=== PATIENT | male | born 1975 | race Caucasian/White ===

== ENCOUNTER 2017-10-14 05:20 | Emergency (ER) | payer OTHER ==
[~2017-10-14] VITALS: Ht 180.3 cm; Wt 97.5 kg
[~2017-10-14 05:20] MED LIST: AMOCLA875 PO; Augmentin 875-1 EACH PO; CEPH500 PO; ERYT.5TO LEFTEYE; HALO.05TC TOP; HYDACE5 PO; HYDCHL25 PO; IBUP800 PO; NAPR500 PO; OXYACE5T PO; PARO20 PO; PRED10 PO; RXOXYACE PO; Ultram50 MG PO
[2017-10-14 05:56] LABS: BASOPHILS ABSOLUTE AUTO 0.06 K/mm3 (0.00-0.23); BASOPHILS PERCENT AUTO 1 % (0-2); EOSINOPHILS ABSOLUTE AUTO 0.11 K/mm3 (0.00-0.68); EOSINOPHILS PERCENT AUTO 2 % (0-6); Hematocrit 46.3 % (37.0-53.0); IMMATURE GRAN ABSOLUTE AUTO 0.01 K/mm3 (0.00-0.10); IMMATURE GRAN PERCENT AUTO 0 % (0-1); LYMPHOCYTES ABSOLUTE AUTO 2.82 K/mm3 (0.84-5.20); LYMPHOCYTES PERCENT AUTO 58 % (21-46); MONOCYTES ABSOLUTE AUTO 0.42 K/mm3 (0.16-1.47); MONOCYTES PERCENT AUTO 9 % (4-13); Mean Corpuscular HGB 32.8 pg (26.0-34.0); Mean Corpuscular HGB Conc 34.6 g/dL (31.5-36.5); Mean Corpuscular Volume 95 fL (80-100); Mean Platelet Volume 8.8 fL (9.1-12.4); NEUTROPHILS ABSOLUTE AUTO 1.47 K/mm3 (1.96-9.15); NEUTROPHILS PERCENT AUTO 30 % (41-73); Platelet Count 230 K/mm3 (150-400); RDW Coefficient Variation 11.8 % (11.7-14.2); Red Blood Cell Count 4.88 M/mm3 (4.30-5.90); White Blood Cell Count 4.89 K/mm3 (4.00-11.30)
[2017-10-14 06:24] LABS: Alanine Aminotransfer (ALT/SGP 48 U/L (12-78); Albumin, Blood 4.6 g/dL (3.4-5.0); Albumin/Globulin Ratio 1.1 (0.8-1.8); Alk Phos 65 U/L (50-136); Anion Gap 11 mmol/L (6-16); Aspartate Aminotrans (AST/SGOT 57 U/L (12-37); Bilirubin, Total 0.4 mg/dL (0.1-1.0); Blood Urea Nitrogen 8 mg/dL (8-24); Bun/Creatinine Ratio 9.4 (12.0-20.0); CO2, Blood 27 mmol/L (21-32); Chloride, Blood 103 mmol/L (98-108); Creatinine, Blood 0.86 mg/dL (0.60-1.20); Globulin, Blood 4.3 g/dL (2.2-4.0); Glomerular Filtration Rate >60 (60-); Glucose, Blood 105 mg/dL (70-99); Potassium, Blood 3.5 mmol/L (3.5-5.5); Sodium, Blood 141 mmol/L (136-145); Total Protein, Blood 8.9 g/dL (6.4-8.2)
== END 2017-10-14 08:12 | disposition home or self-care (01) ==
LOC: ER 05:20
PROVIDERS: Emergency Medicine
DX: R10.10 Upper abdominal pain, unspecified (principal); I10 Essential (primary) hypertension; Z91.013 Allergy to seafood
CPT/HCPCS: 36415; 80053; 83690; 85025; 96361; 96374; 99283; J2405; J7030

== ENCOUNTER → 2018-03-15 | Outpatient (CLI) | payer OTHER | END | disposition home or self-care (01) | LOC: OLS 14:35 → LAB SHORT 14:35 | DX: S51.811A Laceration without foreign body of right forearm, initial encounter (principal) | CPT/HCPCS: 87070; 87075; 87205 ==

== ENCOUNTER 2018-08-11 21:25 | Inpatient (IN) | payer OTHER ==
[~2018-08-11] VITALS: Ht 180.3 cm; Wt 91.1 kg
[2018-08-11] MEDS ORDERED: GABA300 PO (21:48)
[2018-08-11] MEDS ORDERED: CLON.1 PO (21:49)
[2018-08-11] MEDS ORDERED: THIA100 PO (21:49)
[2018-08-11] MEDS ORDERED: LORA1 PO (21:50)
[2018-08-11] MEDS ORDERED: MELA3 PO (21:50)
[2018-08-11] MEDS ORDERED: Hair, Skin & N1 EACH PO (21:50)
[2018-08-11] MEDS ORDERED: FOLI400 PO (21:50)
[2018-08-11] MEDS ORDERED: Prilosec Otc20 MG PO (21:52)
[2018-08-11] MEDS ORDERED: [UNRECOGNIZED DRUG - OTHER] PO (21:52)
[2018-08-11] MEDS ORDERED: METO25ER PO (21:53)
[2018-08-11] MEDS ORDERED: HYDHCL25 PO (21:53)
[2018-08-11] MEDS ORDERED: PROM25 PO (21:54)
[2018-08-11] MEDS ORDERED: TRAZ50 PO (21:55)
[2018-08-11 23:04] LABS: BASOPHILS ABSOLUTE AUTO 0.07 K/mm3 (0.00-0.23); BASOPHILS PERCENT AUTO 1 % (0-2); EOSINOPHILS ABSOLUTE AUTO 0.29 K/mm3 (0.00-0.68); EOSINOPHILS PERCENT AUTO 6 % (0-6); Hematocrit 40.7 % (37.0-53.0); Hemoglobin 13.6 g/dL (13.5-17.5); IMMATURE GRAN ABSOLUTE AUTO 0.02 K/mm3 (0.00-0.10); IMMATURE GRAN PERCENT AUTO 0 % (0-1); LYMPHOCYTES ABSOLUTE AUTO 1.39 K/mm3 (0.84-5.20); LYMPHOCYTES PERCENT AUTO 29 % (21-46); MONOCYTES ABSOLUTE AUTO 0.96 K/mm3 (0.16-1.47); MONOCYTES PERCENT AUTO 20 % (4-13); Mean Corpuscular HGB 33.4 pg (26.0-34.0); Mean Corpuscular HGB Conc 33.4 g/dL (31.5-36.5); Mean Corpuscular Volume 100 fL (80-100); Mean Platelet Volume 10.4 fL (9.1-12.4); NEUTROPHILS PERCENT AUTO 44 % (41-73); Platelet Count 216 K/mm3 (150-400); RDW Coefficient Variation 11.8 % (11.7-14.2); RDW Standard Deviation 42.7 fL (35.1-46.3); Red Blood Cell Count 4.07 M/mm3 (4.30-5.90); White Blood Cell Count 4.83 K/mm3 (4.00-11.30)
[2018-08-11 23:08] LABS: Alanine Aminotransfer (ALT/SGP 105 U/L (12-78); Albumin, Blood 3.8 g/dL (3.4-5.0); Alk Phos 56 U/L (50-136); Anion Gap 8 mmol/L (6-16); Aspartate Aminotrans (AST/SGOT 107 U/L (12-37); Bilirubin, Total 0.5 mg/dL (0.1-1.0); Blood Urea Nitrogen 7 mg/dL (8-24); Bun/Creatinine Ratio 9.4 (12.0-20.0); CO2, Blood 27 mmol/L (21-32); Calcium, Blood 9.1 mg/dL (8.5-10.1); Chloride, Blood 105 mmol/L (98-108); Creatinine, Blood 0.75 mg/dL (0.60-1.20); Globulin, Blood 3.8 g/dL (2.2-4.0); Glomerular Filtration Rate >60 (60-); Glucose, Blood 95 mg/dL (70-99); Sodium, Blood 140 mmol/L (136-145); Total Protein, Blood 7.6 g/dL (6.4-8.2)
[2018-08-11 23:10] LABS: Ethanol (Alcohol), Blood, Med <3 mg/dL
[2018-08-12 01:54] LABS: Hematocrit 40.1 % (37.0-53.0); Hemoglobin 13.5 g/dL (13.5-17.5); Mean Corpuscular HGB 34.1 pg (26.0-34.0); Mean Corpuscular HGB Conc 33.7 g/dL (31.5-36.5); Mean Corpuscular Volume 101 fL (80-100); Mean Platelet Volume 10.2 fL (9.1-12.4); Platelet Count 194 K/mm3 (150-400); RDW Coefficient Variation 11.8 % (11.7-14.2); RDW Standard Deviation 43.9 fL (35.1-46.3); Red Blood Cell Count 3.96 M/mm3 (4.30-5.90); White Blood Cell Count 3.77 K/mm3 (4.00-11.30)
[2018-08-12 02:13] LABS: Alanine Aminotransfer (ALT/SGP 96 U/L (12-78); Albumin, Blood 3.7 g/dL (3.4-5.0); Albumin/Globulin Ratio 1.1 (0.8-1.8); Alk Phos 55 U/L (50-136); Anion Gap 7 mmol/L (6-16); Aspartate Aminotrans (AST/SGOT 90 U/L (12-37); Bilirubin, Total 0.5 mg/dL (0.1-1.0); Blood Urea Nitrogen 6 mg/dL (8-24); Bun/Creatinine Ratio 7.8 (12.0-20.0); CO2, Blood 29 mmol/L (21-32); Calcium, Blood 8.8 mg/dL (8.5-10.1); Chloride, Blood 106 mmol/L (98-108); Creatinine, Blood 0.77 mg/dL (0.60-1.20); Globulin, Blood 3.5 g/dL (2.2-4.0); Glomerular Filtration Rate >60 (60-); Glucose, Blood 102 mg/dL (70-99); Potassium, Blood 3.7 mmol/L (3.5-5.5); Sodium, Blood 142 mmol/L (136-145); Total Protein, Blood 7.2 g/dL (6.4-8.2)
[2018-08-12 02:17] LABS: Lithium <0.20 mmol/L (0.60-1.20)
[2018-08-12 02:23] LABS: U Amphetamine Screen Not Detected; U Barbituate Screen Not Detected; U Benzodiazapine Screen DETECTED; U Buprenorphine Screen Not Detected; U Cannabinoids Screen Not Detected; U Cocaine Screen Not Detected; U Methadone Screen Not Detected; U Methamphetamine Screen Not Detected; U Opiates Screen Not Detected; U Oxycodone Screen Not Detected; U Phencyclidine Screen Not Detected; U Propoxyphene Screen Not Detected
--- NOTE | 2018-08-12 07:34 | NUR ---
Assumed Care: Assumed care of pt at approx 0300 when pt arrived to ICU from PCU, accompanied by INVESTIGATOR. Pt combative and required more than 4 clinical staff and 2 security staff to transfer pt over to ICU bed and place in violent restraints. Dr. Olea notified of need for yeaa-mh-diad w/pt and that pt was placed in tough cuff restraints x4 extremities. Pt started on precedex gtt and within 20 minutes, pt became much more calm and quiet. Dr. Olea at bedside for [id number]. Pt removed violent restraint and now non-violent restraint in place. Pt now calm and quiet. Precedex gtt titrated down to 0.7mc/kg/hr. Verified at bedside w/laz RN. Pt currently resting in bed with call light within reach. In no apparent sign of distress. VSS.
--- NOTE | 2018-08-12 07:35 | NUR ---
PT ARRIVED TO ICU WITH SECURITY & SEVERAL STAFF MEMBERS. PT WAS ORIENTED TO SELF ONLY & COMBATIVE, SWEARING & SPITTING. MULTIPLE STAFF, INCLUDING SECURITY STAFF REQUIRED TO PLACE PT IN 4PT TAT RESTRAINTS. PRECEDEX GTT WAS STARTED & PT WAS OBSERVED DIRECTLY FOR FIRST HOUR WHILE TITRATING. TATX4 WERE RELEASED AFTER ONE HOUR & PT CHANGED TO NON-VIOLENT RESTRAINT AT 0530. FACE TO FACE ASSESSMENT BY MYSELF & DR IRBY. PRECEDEX GTT IS TITRATED TO 0.7MCG/KG/HR. PT IS CHANGED TO NON-VIOLENT RESTRAINT.
--- NOTE | 2018-08-12 09:19 | NUR ---
PCU PATIENT UPDATE PT ARRIVED TO PCU AT APPROX 0100 AND WAS TRANSFERRED TO ICU AT APPROX 0300. PT EXHIBITED INCREASING AGITATION AND ANXIETY. HIS CIWA WENT FROM 13 ON ARRIVAL TO A 35 BY TIME HE WAS TRANSFERRED TO ICU. HE WAS IMPULSIVE, NOT REDIRECTABLE, AND WAS GROWING INCREASINGLY COMBATIVE WITH STAFF. HE WAS PROVIDED ORDERED ANTI ANXIETY MEDS TO NO AFFECT. DOCTOR WAS CALLED AND PT WAS TRANSFERRED WITH ORDERS TO BEGIN PRECEDEX ON ARRIVAL TO ICU. REPORT GIVEN TO EMILY DOMINIQUE AT BEDSIDE.
--- NOTE | 2018-08-12 10:07 | NUR ---
0800 PT HAS LEAKED URINE AND REMAINS SEDATE. JOSÉ PLACED WITH 1525 U.O. AND WILL LEAVE JOSÉ IN FOR NOW. PT TOLERATED W/O DISTRESS.
--- NOTE | 2018-08-12 12:38 | NUR ---
PT CONTINUES TO REST QUIETLY EVEN WITH DOWNWARD TITRATION OF PRECEDEX, SEE FLOW SHEET. VSS AND RR REGULAR WITH NOTED SATS. WHILE TYPING THIS ENTRY, PT RAISED UP IN BED, MUMBLED AND BECAME RESTLESS. PRECEDEX GTT LEFT AT 0.4MCG FOR NOW. PT MOVING ALL 4 EXT.
[2018-08-12 15:12] LABS: Source, Urine Catheter
[2018-08-12 15:22] LABS: Appearance, Urine Clear (Clear); Bilirubin, Urine Neg (Neg); Blood, Urine Neg (Neg); Color, Urine Yellow (P-Yellow); Glucose Qualitative, Urine Neg (Neg); Ketones, Urine Neg (Neg); Leukocyte Esterase, Urine Neg (Neg); Nitrite, Urine Neg (Neg); Protein, Urine Neg (Neg); Specific Gravity, Urine 1.015 (1.003-1.022); Urobilinogen, Urine NORM (Normal); pH, Urine 6.5 (5.0-8.0)
--- NOTE | 2018-08-12 15:24 | NUR ---
PT CONT TO REST WELL BUT JUST NOW AGAIN BRIEFLY RAISED UP AND DOWN WITH OUT INCIDENT. VS NOTED. PRECEDEX GTT AT 0.6/14.7ML. PT REMAINS RESTRAINED.
--- NOTE | 2018-08-12 16:27 | NUR ---
PT AROUSING AND WANTS"OUT" BUT THEN CLOSED EYES AND CALM AGAIN. PRECEDEX REMAINS AT 0.6MCG FOR NOW. WILL CONT TO FOLLOW.
--- NOTE | 2018-08-12 18:00 | NUR ---
PT OCC AWAKENS BUT ONLY FOR SHORT PERIOD OF MUMBLING, THE TO SLEEP. PRECEDEX GTT AT 0.7MCG. RESTRAINTS TIMES 4 THIS DAY. VSS NOTED.
--- NOTE | 2018-08-12 19:55 | NUR ---
ASSUMED CARE OF PT AT 1900. REPORT RECEIVED AT BEDSIDE. PT PRESENTS IN BED WITH NOTEABLE 'TWITCHING' MOTIONS. PT AWAKENS AND BECOMES VULGAR WITH CARE. WHEN PRESENTING PT WITH LIBRIUM TO HELP WITH WITHDRAWALS PT IS COOPERATIVE WITH TAKING MEDS. PT SLOW WITH SWALLOW BUT IS ABLE TO MANAGE TAKING MEDS WITHOUT COUGH OR ISSUE. DID ADMINISTER 2 MG ATIVAN WELL. VSS. PRECEDEX CONTINUES AT 0.7 MCG'S/KG/HOUR. WILL CONTINUE TO CLOSELY MONITOR PT. HE ALSO REMAINS IN RESTRAINTS X 4 (EXTREMITIES) PT HAS, SINCE TAKING OVER CARE, BEEN PULLING AGGRESSIVELY AT RESTRAINTS AND ATTEMPTING TO GET OUT OF BED. AT THIS TIME, PT IS RESTING WITHOUT PULLING AT RESTRAINTS OR ATTEMPTING TO GET OUT OF BED. WILL REVIEW CHART AND PLAN OF CARE FOR THIS PT.
--- NOTE | 2018-08-12 21:21 | NUR ---
PT REMAINS IN 4 POINT RESTRAINTS FOR HIS SAFETY. HAS DEMONSTRATED ANXIOUSNESS AND IMPULSIVENSS. AT THIS TIME, PT RESTING IN NO APPARENT DISTRESS. HAS HAD DOSAGE OF LIBRIUM WITH GOOD RESULTS. WILL CONTINUE TO CLOSELY MONITOR.
[2018-08-13 03:29] LABS: Hematocrit 43.3 % (37.0-53.0); Mean Corpuscular HGB 34.1 pg (26.0-34.0); Mean Corpuscular HGB Conc 34.6 g/dL (31.5-36.5); Mean Platelet Volume 9.4 fL (9.1-12.4); Platelet Count 185 K/mm3 (150-400); RDW Coefficient Variation 11.3 % (11.7-14.2); RDW Standard Deviation 41.2 fL (35.1-46.3); White Blood Cell Count 6.41 K/mm3 (4.00-11.30)
[2018-08-13 03:30] LABS: Mean Corpuscular Volume 98 fL (80-100)
[2018-08-13 03:46] LABS: Anion Gap 8 mmol/L (6-16); Blood Urea Nitrogen 4 mg/dL (8-24); Bun/Creatinine Ratio 5.9 (12.0-20.0); CO2, Blood 29 mmol/L (21-32); Calcium, Blood 8.5 mg/dL (8.5-10.1); Chloride, Blood 104 mmol/L (98-108); Creatinine, Blood 0.67 mg/dL (0.60-1.20); Glomerular Filtration Rate >60 (60-); Glucose, Blood 106 mg/dL (70-99); Phosphorus, Blood 1.9 mg/dL (2.5-4.9); Potassium, Blood 3.8 mmol/L (3.5-5.5); Sodium, Blood 141 mmol/L (136-145)
--- NOTE | 2018-08-13 07:15 | NUR ---
NURSING SUMMARY RECEIVED REPORT FROM JUANY BROWN, AND ASSUMED CARE OF PATIENT. PATIENT IN TOUGH CUFFS X 4 EXTREMITIES, SLEEPING AT THIS TIME, AWAKES TO VOICE AND GENTLE TOUCH, MUMBLES WITH INTERMITTEN UNDERSTANDABLE ONE WORD RESPONSES TO QUESTIONS AND SOME CUS WORDS. WHEN HE WAKES, HE BECOMES MODERATELY AGITATED, ATTEMPTS TO GET OUT OF BED, PULLING ON THE RESTRAINTS SO HARD THE BED SHAKES STRONGLY, IMPULSIVE AND MOVES FAST, MOVES ALL EXTREMETIES AND REPOSITIONS SELF WITH ATTEMPTS TO GET OUT OF BED. FREQUENT ASSESSMENTS TO CONSIDER USING SOFT RESTRAINTS INSTEAD OF TUFF CUFFS. ON PRECEDEX AT 0.7 MCG/KG/HR. KPHOS INFUSING FOR PHOS = 1.9. CIWA - 16. WILL MEDICATE WITH ATIVAN AND LIBRIUM ORDERED. JOSÉ IN PLACE DRAINING CLEAR YELLOW URINE. NO EVIDENCE OF PAIN OR DISTRESS OTHER THAN THE EVIDENT WITHDRAWAL SYMPTOMS.
--- NOTE | 2018-08-13 07:30 | NUR ---
HAVE ADMINISTERED 50 MG LIBRIUM SEVERAL TIMES THIS NIGHT. NEEDS COACHING ON TAKING WATER. NO COUGH OR ISSUES WITH SWALLOW. PT HAS BEEN VULGAR WITH STAFF, AND AT TIMES NOT COOPERATIVE. PRECEDEX REMAINS AT 0.7MCG/KG/HOUR. 2MG LORAZEPAM AT APPROX 1-2 HOURS FOR BREAKTHROUGH AGITATION. REPORT GIVEN TO ONCOMING RN.
--- NOTE | 2018-08-13 09:57 | NUR ---
NURSING SUMMARY INTERMITTENT SLEEPING WITH WAKING ON HIS OWN. WHEN AWAKE, ATTEMPTS TO GET OUT OF BED, PULLS VERY HARD ON THE RESTRAINTS WITH CLEAR ATTEMPTS TO GET OUT OF THEM, SHAKES THE BED HARD WITH EACH ATTEMPT, REMAINS IN TOUGH CUFFS, STRENGTH AND FREQUENCY OF ATTEMPTS TO GET OUT OF RESTRAINTS PREVENTS CHANGING TO SOFT RESTRAINTS FOR PATIENTS SAFETY AND THE SAFETY OF STAFF. WILL MONITOR FREQUENTLY FOR CONSIDERATION FOR SOFT RESTRAINTS. PRECEDEX CONTINUES AT 0.7 MCG/KG/HR. HAVE GIVEN TWO DOSES OF ATIVAN 2 MG IV AND ONE DOSE OF LIBRIUM 50 MG SINCE START OF SHIFT. PATIENT ABLE TO SWALLOW PILLS AND WATER WELL. ATTEMPTED TO FEED PATIENT BREAKFAST BUT WAS TOO SLEEPY AND SAID NO.
--- NOTE | 2018-08-13 12:08 | NUR ---
PATIENT STATES "I'M STARVING" WHEN ASKED IF HE IS HUNGRY. FEEDING PATIENT, ABLE TO CHEW HIS FOOD BUT TAKES A LONG TIME TO CHEW EACH BITE, APPROX. 2 MINUTES, ABLE TO SWALLOW WITHOUT CHOKING OR DIFFICULTY.
--- NOTE | 2018-08-13 15:00 | NUR ---
NURSING SUMMARY CURRENTLY IN TOUGH CUFFS TO BILATERAL WRISTS, REMOVED BILATERAL ANKLE TOUGH CUFFS FOLLOWING REMOVAL OF LEFT ANKLE FIRST FOR TWO HOURS AND THEN REMOVED THE RIGHT ANKLE, CONTINUES WITH SLEEPING AND INTERMITTENT WAKEFULNESS WITH ANXIETY AND AGITATION, ATTEMPTS TO PULL HARD ON WRIST RESTRAINTS THAT CAUSES THE BED THE SHAKE, ANSWERING QUESTIONS MORE COHERENTLY WITH FULL SENTENCE RESEPONSES, CIWA = 15, PRECEDEX AT 0.7 MCG/KG/HR, ATIVAN 2 MG APPROX. EVERY 2 HOURS AND LIBRIUM EVERY 6 HOURS. DENIES NEED TO HAVE A BOWEL MOVEMENT. DOES C/O NEEDING TO PEE, INSTRUCTED RE: CATHETER IN PLACE. DENIES URINARY BURNING AND DENIES PAIN. DOES ASK, "WHAT'S IT GOING TO TAKE TO GET OUT OF THESE?" INSTRUCTED RE: WHAT IS NECESSARY TO REMOVE THE RESTRAINTS. PT TENDS TO FALL ASLEEP DURING EXPLANATION.
--- NOTE | 2018-08-13 17:02 | NUR ---
NURSING SUMMARY SLEEPING MOST OF THE TIME. WAKES INTERMITTENTLY FOR BRIEF PERIODS OF TIME, WHEN WAKES HE TRIES TO SIT UP, AGITATED, TREMORS, PULLS HARD ON WRIST RESTRAINTS, SHAKES THE BED AT TIMES, NO ANKLE RESTRAINTS, SHAKES THE BED AT TIMES, MUMBLES, CUSSES, ORIENTED TO SELF ONLY, OFFERRING SIPS OF WATER, OFFERRED JUICE AND PT DENIED, REDUCED PRECEDEX TO 0.5 MCG/KG/HR, GIVING ATIVAN APPROX EVERY 2-3 HRS, NEXT LIBRIUM DOSE SCHEDULED FOR 1800, DENIES NEED TO HAVE A BOWEL MOVEMENT, JOSÉ IN PLACE DRAINING DARK YELLOW URINE, SR ON MONITOR, HR 60'S, LUNGS CLEAR, 1L O2 NC, SATS 97%.
--- NOTE | 2018-08-13 21:00 | NUR ---
ASSUMED CARE OF PT AT 1900. REPORT RECEIVED. PT PRESENTS IN BED. VERY RESTLESS. OF NOTE: PT COMPLAINS OF HIS LEFT WRIST BEING VERY SORE. HAS HAD SINCE ADMIT BEEN VERY AGGRESSIVE AT PULLING AT RESTRAINTS AND NEEDED MULTIPLE STAFF AND SECURITY JUST TO TRANSFER PT FROM PCU BED TO ICU BED. PT CONTINUES ON PRECEDEX DRIP AT 0.5 MCG'S. PRN ATIVAN GIVEN. TAT WRIST RESTRAINTS WERE REPLACED BY SOFT WRIST RESTRAINTS TO CHANGE PRESSURE ON WRIST. WILL CONTINUE TO MONITOR WRIST. WILL CALL FOR XRAY IF PAIN PERSISTS. WILL REVIEW CHART AND PLAN OF CARE.
--- NOTE | 2018-08-13 22:23 | NUR ---
PT CONTINUES ON PRECEDEX DRIP AT 0.5 MCG'S. HAVE NEEDED TO INCREASE FREQUENCY OF ATIVAN SECONDARY TO INCREASING CONFUSION AND AGITATION. NO INCREASE IN COMPLAINT OF LEFT WRIST ISSUES. PT HAS MADE SEVERAL ATTEMPTS AT MOVING DOWNWARDS IN BED TO GET OUT OF BED. WHEN ASKED IF HE KNEW WHERE HE IS HE ANSWERED, " HOME" PT REMAINS CONFUSED. HAS BEEN ATTEMPTING TO PULL AT JOSÉ CATHETER. WILL CONTINUE TO MONITOR.
--- NOTE | 2018-08-14 02:34 | NUR ---
PT AWAKENS FREQUENTLY AND SHIFT ABOUT IN BED. PULLS ON RESTRAINTS. REMAINS UNAWARE OF WHERE HE IS AT THE TIME. WILL CONTINUE TO MONITOR
[2018-08-14 03:54] LABS: Anion Gap 10 mmol/L (6-16); Blood Urea Nitrogen 5 mg/dL (8-24); Bun/Creatinine Ratio 7.9 (12.0-20.0); CO2, Blood 24 mmol/L (21-32); Calcium, Blood 8.3 mg/dL (8.5-10.1); Chloride, Blood 101 mmol/L (98-108); Creatinine, Blood 0.63 mg/dL (0.60-1.20); Glomerular Filtration Rate >60 (60-); Glucose, Blood 97 mg/dL (70-99); Magnesium, Blood 1.8 mg/dL (1.6-2.4); Phosphorus, Blood 2.2 mg/dL (2.5-4.9); Potassium, Blood 3.7 mmol/L (3.5-5.5); Sodium, Blood 135 mmol/L (136-145)
--- NOTE | 2018-08-14 04:52 | NUR ---
PRECEDEX INCREASED TO 6 MCG/KG/HOUR SECONDARY TO INCREASING CIWA. PT HAS AWAKENED AND WAS ABLE TO GET AHOLD OF HIS CATHETER. PT NEEDED TO BE INSTRUCTED THAT IF HE PULLED HIS CATHETER HE WOULD HURT HIMSELF. HE ONLY TOLD RN TO LEAVE HIM ALONE, PT NEEDED TO BE PHYSICALLY MADE TO RELEASE THE JOSÉ. RESTRAINTS READJUSTED TO WHERE HE WAS UNABLE TO GET HIS HANDS ON TUBING. WILL CONTINUE TO MONITOR PT, AND WILL REPORT OFF TO ONCOMING RN.
--- NOTE | 2018-08-14 10:28 | NUR ---
0715-ASSSUMED CARE OF PT. PATIENT IS ORIENTED TO PERSON, TIME. PT STATED HE IS IN [place]. PT NOTED TO HAVE SOME HALLUCINATIONS. PT IS ON PRECEDEX DRIP @ 0.6MCG/KG/HR. PT IS FOLLOWING COMMNADS. 0830-PT STARTED CLIMBING OUT OF BED. INCREASED PRECEDEX DRIP TO 1.0MCG/KG/HR 0900-AWAKENED PT FOR BREAKFAST, PT REFUSED TO EAT HE ONLY HAD A FEW SIPS OF HIS ORANGE JUICE. 1025-CURRENT PRECEDEX DRIP RATE @ 0.9MCG/KG/HR. PT IS SLEEPING SOUNDLY AWAKENS TO VOICE.
--- NOTE | 2018-08-14 15:07 | NUR ---
PT HAS BEEN SLEEPING MOST OF THE DAY. OPENS EYES TO VOICE. AWAKENS WHEN GIVEN FLUIDS. PT REFUSING TO EAT LUNCH AND DINNER. STILL ON PRECEDEX DRIP 2 0.9MCG/KG/HR.
--- NOTE | 2018-08-14 16:30 | NUR ---
1545-NOTED PT ATTEMPTING TO GET OUT OF BED WITHOUT HELP. ENCOURAGED PT TO GET BACK TO BED SINCE HE IS UNSTEADY ON HIS FEET AND IT WAS NOT SAFE FOR HIM TO GET OUT OF BED. PT STILL INSISTENT OF GETTING OUT OF BED WITHOUT HELP. PT IS HAVING TREMORS AND STARTING TO BE AGITATED. PT STARTS TO KICK & SWING HIS ARMS TO STAFF SINCE HE WANTS TO GET OUT OF BED. PT IS CONFUSED. PT HAS BEEN MOSTLY SLEEPING DURING THE DAY BUT WHEN AWAKENS PT GETS AGITATED. PT STARTED BE UNCONTROLLABLE DESPITE TALKING TO PATIENT. SECURITY WAS CALLED TO HELP DEESCALATE PATIENT. PT WAS GIVEN ATIVAN AND LIBRUIM. INCREASED PRECEDEX DRIP TO 1.2 MCG/KG/HR. PT IS BACK ON RESTRAINTS AT 1600.
--- NOTE | 2018-08-14 18:21 | NUR ---
SHIFT SUMMARY: PT IS SLEEPING, SEDATED WITH ATIVAN, LIBRIUM AND PRECEDEX. CURRENT PRECEDEX DRIP RATE IS AT 1.0MCG/KG/HR. PT HAS BEEN OFF RESTRAINTS SINCE AROUND 0800 THIS MORNING UNTIL AROUND 1600 THAT RESTRAINTS WAS PLACED BACK. PT WAS IMPULSIVE, CONFUSED, AGITATED, TRYING TO GET OUT OF BED WITHOUT HELP. PT IS STILL HAVING HALLUCINATIONS. CIWA WAS 13- 16- 23. CURRENT CIWA IS 11. STILL ON PRECEDEX DRIP @ 1.0 MCG/KG/HR.
--- NOTE | 2018-08-14 19:15 | NUR ---
ASSUMED CARE OF PT, REPORT RECEIVED. PT RESTING QUIETLY AT THIS TIME AND APPEARS TO BE SLEEPING. PRECEDEX GTT AT 1 MCG/KG/HR, NS AT 75 ML/HR BOTH TO LEFT FOREARM IV, RIGHT FOREARM SALINE LOCK NOTED, SITE WNL. BILAT SOFT WRIST RESTRAINTS NOTED. HR 70S, SINUS RHYTHM, SBP NOTED 163, WILL MONITOR. PT AROUSES EASILY TO VERBAL STIMULI, DOES NOT ANSWER QUESTIONS REGARDING ORIENTATION, RESPONSES ARE GENERALLY MUMBLED HOWEVER PT DID CLEARLY STATE "THIS IS BULLSHIT" WHILE ATTEMPTING TO GET UP OOB WITH WRIST RESTRAINTS IN PLACE. HE DOES NOT ANSWER REGARDING HIS PLANNED DESTINATION FOR UP OOB HOWEVER CONTINUES TO ATTEMPT TO GET UP AT THIS TIME. DOES CALM WITH DECREASE IN STIMULATION, WILL MONITOR.
--- NOTE | 2018-08-15 06:47 | NUR ---
PT CONT CONFUSED THROUGHOUT SHIFT, SPEECH IS MORE EASILY UNDERSTOOD AT 0400 ASSESSMENT, HE IS NOTED TO SAY "I'M SORRY" AT THAT TIME HOWEVER HE CONTINUES TO ATTEMPT TO GET UP OOB AND REACH FOR IV LINES AND CATHETER TUBING WITH INCREASES IN STIMULATION IN ROOM. ADMITS TO HEADACHE AT 0500 THIS AM, DENIES NAUSEA THROUGHOUT SHIFT. ASSESSMENT IS OTHERWISE UNCHANGED FROM HS.
--- NOTE | 2018-08-15 09:50 | NUR ---
0710-ASSUMED CARE OF PT. PT IS ASLEEP. STILL ON PRECEDEX DRIP @ 1.0MCG/KG/HR. DENIES PAIN ALTHOUGH WHEN LEFT HAND IS HELD PT COMPLAINTS ABOUT IT. OTHERWISE HE DENIES IT. PT OPENS EYES TO VOICE. PT KNOWS HIS NAME. SOMETIMES FOLLOWING DIRECTIONS. PT STATES HE WANTED TO GO HOME. REMINDED HIM THAT HE WENT TO [place] TO BE HELPED TO STOP DRINKING. PT SEEMED TO REMEMBER THIS. REMINDED HIM WHY HE WAS BROUGHT TO THE HOSPITAL. 0740-PT SAT UP IN BED. PT ATTEMPTED TO BRUSH HIS TEETH BUT VERY WEAK TO BE ABLE TO DO THE ACTIVITY. THIS NURSE ASSISTED PT IN BRUSHING HIS TEETH. PT THOUGHT HE WANTED TO GET OUT OF BED. RESTRAINTS WERE DISCONTINUED AT 0743. PT HAS BEEN CALM AND COOPERATIVE. PT HAS BEEN REDIRECTABLE. BED ALARM AND TAB ALARM ON AT THIS TIME. 0815-TRIED TO GET PATIENT OUT OF BED, PT REFUSED TO. PT IS STILL DROWSY BUT AROUSABLE. ASKED PT IF HE WANTS TO STAY IN BED OR GO SIT ON THE CHAIR PT STATED "STAY IN BED." MEAL ASSISTANCE WAS GIVEN TO PT. PT IS ABLE TO RAISE BOTH ARMS UP, SOMEWHAT LIMITED ON THE LEFT HAND. PT DID TRY TO PUT THE SPOON IN HIS MOUTH BUT UNSUCCESFUL. DECREASED PRECEDEX RATE TO 0.8MCG/KG/HR 0950-CURRENT PRECEDEX DRIP RATE IS @ 0.7MCG/KG/HR. STILL SLEEPING SOUNDLY. GETS AWAKEN EASILY TO IV BEEPS IN THE ROOM.
--- NOTE | 2018-08-15 11:27 | NUR ---
PT TRIED TO GET OUT OF BED AGAIN. ALLOWED PT TO SIT AT THE SIDE OF THE BED. HE WANTED TO SIT ON THE CHAIR. PT ATTEMPTED TO STAND WI 2 PERSON ASSIST BUT PT IS TOO WEAK. PT STATED "I CAN'T." PT DECIDED TO LAY BACK IN BED. PT WEAK TO BE ABLE TO SIT AT THE SIDE OF THE BED WITHOUT SUPERVISION.
--- NOTE | 2018-08-15 17:45 | NUR ---
SHIFT SUMMARY: PT IS STILL ON PRECEDEX DRIP CURRENTLY INFUSING AT 0.4MCG/KG/HR. CURRENT CIWA SCORE IS 12. PT HAS MOSTLY BEEN SLEEPING, AWAKENS TO GIVE PT FLUIDS BUT REFUSING TO EAT. PT RANDOMLY SAY FOUL LANGUAGE. PT IS STILL CONFUSED. PT HAS NOT IMPULSIVE ATTEMPTED TO GET OUT OF BED TODAY. PT HAS BEEN OFF RESTRAINTS SINCE 0743 THIS MORNING.
--- NOTE | 2018-08-15 19:30 | NUR ---
ASSUMED CARE OF PT, REPORT RECIEVED. PRECEDEX GTT AT 0.4 MCG/KG/HR TO LEFT FOREARM 16 GAUGE IV. PT DOES OPEN EYES TO VERBAL STIMULI VERY BRIEFLY, DOES NOT FOLLOW COMMANDS AT THIS TIME, VERBAL REPLIES ARE MUMBLED AND DIFFICULT TO UNDERSTAND, PT NODS HEAD YES WHEN ASKED IF HE IS ATTEMPTING TO STATE THAT HE HAS A HEADACHE. PT IS NOTED WARM TO TOUCH, TEMP 101.8, BLANKETS REMOVED AND TEMP DECREASED IN ROOM WILL MONITOR. LUNGS CLEAR THROUGHOUT, LEFT LOWER LOBE DIM, SATS HIGH 90S ON ROOM AIR, RESP RATE CONTINUES MID TO UPPER 20S, NO INCREASED WORK OF BREATHING IS NOTED. HRR, SINUS ON MONITOR, BP IMPROVED. ACTIVE BOWEL TONES X 4, ABD SOFT, NO GRIMACING NOTED WITH PALPATION. JOSÉ CATH REMAINS IN PLACE DRAINING CLEAR DARK YELLOW URINE TO GRAVITY.
[2018-08-16 03:29] LABS: BASOPHILS ABSOLUTE AUTO 0.04 K/mm3 (0.00-0.23); BASOPHILS PERCENT AUTO 0 % (0-2); EOSINOPHILS ABSOLUTE AUTO 0.01 K/mm3 (0.00-0.68); EOSINOPHILS PERCENT AUTO 0 % (0-6); Hematocrit 35.1 % (37.0-53.0); Hemoglobin 12.7 g/dL (13.5-17.5); IMMATURE GRAN ABSOLUTE AUTO 0.06 K/mm3 (0.00-0.10); IMMATURE GRAN PERCENT AUTO 1 % (0-1); LYMPHOCYTES PERCENT AUTO 10 % (21-46); MONOCYTES ABSOLUTE AUTO 2.46 K/mm3 (0.16-1.47); MONOCYTES PERCENT AUTO 22 % (4-13); Mean Corpuscular HGB 34.3 pg (26.0-34.0); Mean Corpuscular HGB Conc 36.2 g/dL (31.5-36.5); Mean Corpuscular Volume 95 fL (80-100); Mean Platelet Volume 10.2 fL (9.1-12.4); NEUTROPHILS ABSOLUTE AUTO 7.57 K/mm3 (1.96-9.15); NEUTROPHILS PERCENT AUTO 67 % (41-73); Platelet Count 245 K/mm3 (150-400); RDW Coefficient Variation 11.1 % (11.7-14.2); RDW Standard Deviation 38.9 fL (35.1-46.3); White Blood Cell Count 11.24 K/mm3 (4.00-11.30)
[2018-08-16 03:46] LABS: Anion Gap 10 mmol/L (6-16); Blood Urea Nitrogen 8 mg/dL (8-24); Bun/Creatinine Ratio 11.5 (12.0-20.0); CO2, Blood 22 mmol/L (21-32); Chloride, Blood 102 mmol/L (98-108); Glomerular Filtration Rate >60 (60-); Glucose, Blood 104 mg/dL (70-99); Magnesium, Blood 2.1 mg/dL (1.6-2.4); Phosphorus, Blood 3.1 mg/dL (2.5-4.9); Potassium, Blood 3.1 mmol/L (3.5-5.5); Sodium, Blood 134 mmol/L (136-145)
--- NOTE | 2018-08-16 07:23 | NUR ---
PT COMMUNICATION IMPROVING THIS SHIFT, SPEECH IS MORE EASILY UNDERSTOOD, CIWA SCORES ARE SLOWLY IMPROVING, NOW 18. HE ABLE TO VERBALLY CALL FOR ASSISTANCE. RESP STATUS CONTINUES WITHOUT CHANGES. RHYTHM REMAINS SINUS, RATE 60-70S, BP REMAINS IMPROVED. BOWEL TONES INCREASED, INCONT OF STOOL THIS SHIFT, LOOSE, YELLOW BOWEL MOVEMENTS X 4, REPORTED TO DAY SHIFT, WILL SEND FOR C-DIFF TESTING. PT WAS FEBRILE TO 101.8 AT HS ASSESSMENT, LITTLE IMPROVEMENT WITH NONPHARMACOLOGIC INTERVENTIONS, DISCUSSED WITH HOSPITALIST AND ORDERS RECEIVED FOR TYLENOL. TEMP WELL CONTROLLED FOLLOWING ONE DOSE AT MIDNOC ASSESSMENT.
--- NOTE | 2018-08-16 07:48 | NUR ---
0700-ASSUMED CARE OF PT. PT IS DROWSY BUT EASILY MORE AROUSABLE. PT STATED HE WANTED TO HAVE A BM. HELPED PT TO GET UP OUT BED AND GO TO THE BEDSIDE COMMODE. PT IS TOO WEAK TO EVEN STAND UP. EXPLAINED TO PT THAT WE WILL TRY TO GET HIM OUT OF BED AGAIN AND CONSULT PHYSICAL THERAPY TO HELP HIM STRONGER AGAIN. PT AGREED. PT IS MORE CALM AND COOPERATIVE. FOLLOWING COMMANDS. PT HAS A LITTLE MORE COMPREHENSION COMPARED TO YESTERDAY'S. PRECEDEX DRIP WAS DECREASED FROM 0.4MCG/GK/HR TO 0.3/KG/HR. PT HAD LIQUID STOOLS. SENT SPECIME TO LAB FOR C-DIFF. BED ALARM STILL ON. EXPLAINED TO PATIENT TO USE THE CALL IF HE NEEDED SOMETHING. PT AGREED.
--- NOTE | 2018-08-16 09:45 | NUR ---
PT SITTING IN THE RECLINER CHAIR AT THIS TIME. PT IS A 2 PERSON MAX ASSIST AND USE A CEILING LIFT. DID ROM EXERCISES. PT TRIED TO STAND UP TWICE. THE SECOND TIME HE STOOD UP HE WAS A LITTLE BIT STRONGER BUT UNABLE TO STAND FOR A LONG PERIOD OF TIME. PT NOT EVEN ABLE TO BRING HIS LEGS UP.
--- NOTE | 2018-08-16 10:58 | NUR ---
HELPED PT TO THE BEDSIDE COMMODE WITH 3 PERSON MAX ASSIST.
--- NOTE | 2018-08-16 11:08 | NUR ---
NOTIFIED PT'S GIRLFRIEND TOÑA OF PT'S ADMISSION TO THE HOSPITAL. UPDATED HER OF PT'S STATUS WITH PERMISSION FROM THE PATIENT.
--- NOTE | 2018-08-16 13:39 | NUR ---
LIZETTE, PHYSICAL THERAPIST CAME BY TO WORK WITH PATIENT.
--- NOTE | 2018-08-16 17:20 | NUR ---
SHIFT SUMMARY: PT IS MORE ALERT. STILL WITH SLIGHT GRABLED SPEECH. PT HAS A SOFT VOICE. PT HAS BEEN OF OUT THE CHAIR FOR ABOUT 7 HOURS. PT HAD A SHOWER TODAY. PT WAS ABLE TO STAND UP 3 TIMES TODAY WITH 2-3 PERSON MAX ASSIST. USED A CEILING LIFT TO TRANSFER PT FROM THE BED AND VICE VERSA. CIWA SCORE 5-7. PRECEDEX DRIP HAS BEEN OFF SINCE 1000 THIS MORNING.
--- NOTE | 2018-08-16 19:45 | NUR ---
ASSUMED CARE OF PT, REPORT RECEIVED. PT IS RESTING QUIETLY RECLINING IN BED, IS ABLE TO STATE THAT HE IS IN THE HOSPITAL IN 2018 FOR ALCOHOL WITHDRAWAL. HE IS ABLE TO STATE EVENTS OF TODAY ACCURATELY. DENIES NAUSEA, DENIES HEADACHE, MILD TREMOR CAN BE FELT WITH HANDS EXTENDED BUT IS NOT VISIBLE AT THIS TIME, SKIN IS DRY, PT DENIES HALLUCINATIONS BOTH AUDITORY AND VISUAL AT THIS TIME. LUNGS ARE CLEAR THROUGHOUT SATS UPPER 90S ON ROOM AIR, RESP RATE MID TEENS. HRR, SINUS TACH AT 108 DURING ASSESSMENT, PRESSURE MAINTAINING, PULSES FULL AND EQUAL X 4. SWELLING/EDEMA CONTINUES TO LEFT HAND WITHOUT CHANGES. NORMOACTIVE BOWEL TONES AT THIS TIME, ABD SOFT, NO TENDERNESS WITH LIGHT PALPATION. JOSÉ CATH REMAINS IN PLACE DRAINING CLEAR DARK YELLOW URINE TO GRAVITY. FEVER OF 101.6 IS NOTED AT THIS TIME. TYLENOL PO ADMIN FOR PT C/O PAIN WELL ELEVATED TEMP, WILL MONITOR.
--- NOTE | 2018-08-17 06:03 | NUR ---
PT INITIAL CIWA SCORE OF 4 THIS SHIFT AT 1948, INCREASED TO 34 AT 2129, AT THAT TIME PT WAS UNABLE TO IDENITIFY SURROUNDINGS, GESTURED TOWARD CORNER OF HIS ROOM AND STATED "I SLEPT NEXT TO THAT BITCH" NO INDIVIDUALS IN PT'S ROOM OTHER THAN THIS RN AND PT, NO PERSONS WERE NOTED IN THE DIRECTION OF PT'S GESTURE. PT MADE MULTIPLE ATTEMPTS TO CLIMB OVER BEDRAIL HOWEVER WAS TOO WEAK TO ACCOMPLISH MORE THAN GETTING HIS LEGS OVER THE BEDRAIL ON ONE SIDE AND HIS HEAD AND SHOULDERS OVER THE BEDRAIL ON THE OPPOSITE SIDE OF THE BED. ATIVAN 2 MG IV WAS ADMIN AND PRECEDEX GTT RESTARTED, PT CIWA THEN DECREASED TO 14 BY [id number] AND THEN 8 BY [id number]. ATTEMPT MADE AFTER MIDNOC TO TITRATE PRECEDEX GTT DOWN SECONDARY TO HEART RATE HIGH 60S, PT CIWA INCREASED TO 27 AT 6 AT WHICH TIME PT PROVIDES ADDRESS ON [facility] FOR LOCATION, CALLS THIS RN "ELIZABETH" AND STATES THAT THIS RN "SHOULDN'T CALL ME KIMI" WHEN ASKED WHAT NAME HE PREFERS THIS RN USE HE STATES "DAD" EXPLAINED TO PT THAT HE IS IN [facility] IN THE ICU FOR ALCOHOL WITHDRAWAL, PRECEDEX GTT INCREASED AND ATIVAN ADMIN. PT WAS FEBRILE AT HS ASSESSMENT WITH MAX TEMP THIS SHIFT OF 102.2 DECREASED TO AFEBRILE FOLLOWING PRECEDEX AND ATIVAN ADMINISTRATION.
--- NOTE | 2018-08-17 07:30 | NUR ---
ASSUMED CARE ASSUMED CARE OF PATIENT. PATIENT CONTINIUES TO BE CONFUSED WHEN AWAKE. PRECEDEX GTT. INFUSING. PLAN TO CONTINUE TO TITRATE PRECEDEX ABLE. CONTINUES TO ENCOURAGE MOBILIZING. WILL CONTINUE TO EVALUATE CIWA AND MEDICATE PER ORDERS NEEDED. WILL NOTIFY PHYSICIANS OF ANY CHANGES.
[2018-08-17 08:07] LABS: Source, Urine Clean Catch
[2018-08-17 08:27] LABS: Anion Gap 8 mmol/L (6-16); Blood Urea Nitrogen 6 mg/dL (8-24); Bun/Creatinine Ratio 8.9 (12.0-20.0); CO2, Blood 25 mmol/L (21-32); Calcium, Blood 8.2 mg/dL (8.5-10.1); Chloride, Blood 105 mmol/L (98-108); Creatinine, Blood 0.67 mg/dL (0.60-1.20); Glomerular Filtration Rate >60 (60-); Glucose, Blood 107 mg/dL (70-99); Potassium, Blood 3.4 mmol/L (3.5-5.5); Sodium, Blood 138 mmol/L (136-145)
[2018-08-17 08:30] LABS: Bilirubin, Urine Neg (Neg); Blood, Urine 3+ (Neg); Glucose Qualitative, Urine Neg (Neg); Ketones, Urine Neg (Neg); Leukocyte Esterase, Urine Neg (Neg); Nitrite, Urine Neg (Neg); Protein, Urine 1+ (Neg); Urobilinogen, Urine 2+ (Normal)
[2018-08-17 08:56] LABS: Appearance, Urine Clear (Clear); Color, Urine Yellow (P-Yellow)
[2018-08-17 09:04] LABS: Bacteria Rare /hpf; Mucus Mod (0-Heavy); Squamous Epithelial Cells Not Seen /hpf (Few)
--- NOTE | 2018-08-17 16:48 | NUR ---
SUMMARY PATIENT CONTINUES TO BE LETHARGIC AND WEAK. PRECEDEX GTT OFF BECAUSE OF NO IV ACCESS. POWER GLIDE PLACEMENT IN PROGRESS. PATIENT WORKED WITH PT EARLIER TODAY. CONTINUES TO BE VERY WEAK BUT SLIGHTLY STRONGER THAN YESTERDAY. CONTINUE TO USE LIFT BECAUSE OF WEAKNESS. PATIENT ENCOURAGED TO MOVE EXTREMETIES. PT CONTINUES TO HAVE INFLAMATION OF HANDS AND FEET. S.O. HERE EARLIER TODAY AND STATED THAT PATIENT HAS A HX OF HIS HANDS SWELLING AT HOME AND PAINFUL FOR PERIODS OF TIME. PATIENT CONTINUES TO HAVE TEMPS UP TO [address] JARAMILLO NOTIFIED. WILL CONTINUE TO OBSERVE AND CONTINUE TO GIVE TYLENOL AND IBUPROFEN NEEDED. CIWA SCORE MAINTAINED THROUGHOUT DAY. PATIENT TAKEN TO SHOWER AGAIN TODAY.
--- NOTE | 2018-08-17 19:15 | NUR ---
ASSUMED CARE OF PT, REPORT RECEIVED. PT IS RESTING QUIETLY RECLINING IN BED AND WATCHING TV. DENIES N/V, DENIES CP/PRESSURE, DENIES SOB/DYSPNEA, DENIES HEADACHE, DENIES HALLUCINATIONS, IS ABLE TO ACCURATELY STATE LOCATION AT THIS TIME, REPORTS MEMORY OF EVENTS OF YESTERDAY DAY SHIFT, DENIES NUMBNESS/TINGLING, DENIES ITCHING. CONTINUES TO SPEAK AT LOW VOLUME, CLARITY IS IMPROVED ALTHOUGH HE DOES CONTINUE TO MUMBLE AT TIMES. NO INCREASED WORK OF BREATHING IS NOTED, RESP RATE WNL, SENTANCES FULL, LUNGS CLEAR WITH DIM BASES BILAT. HRR, SINUS ON MONITOR, MAINTAINING BP, SKIN PWD WITH THE EXCEPTION OF SKIN OVER JOINTS BILAT HANDS AND FEET. SKIN OVER JOINTS IN BILAT HANDS AND FEET IS NOTED TO HAVE INCREASED TEMP COMPARED TO SURROUNDING SKIN, REDNESS AND SLIGHT SWELLING IS NOTED. PT ADMITS TO PAIN TO THESE AREAS RATES "BAD" STATES THAT HE DOES NOT WANT MORE PAIN MEDICATION AT THIS TIME, INDICATES RECENT IBUPROFEN ADMIN, NEXT AVAILABLE AT 2130, WILL MONITOR. NORMOACTIVE BOWEL TONES, ABD SOFT, NO GRIMACING/TENDERNESS IS NOTED TO LIGHT PALPATION. JOSÉ CATHETER REMAINS IN PLACE DRAINING CLEAR TERRELL URINE TO GRAVITY. POWERGLIDE IV IS NOW NOTED TO RIGHT UPPER ARM, INFUSING NORMAL SALINE AT 75 ML/HR VIA INFUSION PUMP. WILL CONT TO MONITOR PT CIWA THROUGHOUT SHIFT, WILL CONT TO MONITOR TEMP, MONITOR AND MEDICATE FOR PAIN PER ORDERS.
[2018-08-18 03:38] LABS: BASOPHILS ABSOLUTE AUTO 0.03 K/mm3 (0.00-0.23); BASOPHILS PERCENT AUTO 0 % (0-2); EOSINOPHILS ABSOLUTE AUTO 0.08 K/mm3 (0.00-0.68); EOSINOPHILS PERCENT AUTO 1 % (0-6); Hematocrit 33.4 % (37.0-53.0); Hemoglobin 11.6 g/dL (13.5-17.5); IMMATURE GRAN ABSOLUTE AUTO 0.03 K/mm3 (0.00-0.10); IMMATURE GRAN PERCENT AUTO 0 % (0-1); LYMPHOCYTES ABSOLUTE AUTO 1.34 K/mm3 (0.84-5.20); LYMPHOCYTES PERCENT AUTO 16 % (21-46); MONOCYTES ABSOLUTE AUTO 1.25 K/mm3 (0.16-1.47); MONOCYTES PERCENT AUTO 15 % (4-13); Mean Corpuscular HGB 33.2 pg (26.0-34.0); Mean Corpuscular HGB Conc 34.7 g/dL (31.5-36.5); Mean Corpuscular Volume 96 fL (80-100); Mean Platelet Volume 10.1 fL (9.1-12.4); NEUTROPHILS ABSOLUTE AUTO 5.56 K/mm3 (1.96-9.15); NEUTROPHILS PERCENT AUTO 67 % (41-73); Platelet Count 330 K/mm3 (150-400); RDW Coefficient Variation 11.7 % (11.7-14.2); Red Blood Cell Count 3.49 M/mm3 (4.30-5.90); White Blood Cell Count 8.29 K/mm3 (4.00-11.30)
[2018-08-18 03:56] LABS: Anion Gap 9 mmol/L (6-16); Blood Urea Nitrogen 8 mg/dL (8-24); Bun/Creatinine Ratio 13.3 (12.0-20.0); CO2, Blood 25 mmol/L (21-32); Calcium, Blood 8.3 mg/dL (8.5-10.1); Chloride, Blood 106 mmol/L (98-108); Glomerular Filtration Rate >60 (60-); Glucose, Blood 98 mg/dL (70-99); Magnesium, Blood 1.9 mg/dL (1.6-2.4); Phosphorus, Blood 3.3 mg/dL (2.5-4.9); Potassium, Blood 3.7 mmol/L (3.5-5.5); Sodium, Blood 140 mmol/L (136-145)
--- NOTE | 2018-08-18 06:09 | NUR ---
PT REMAINS DISORIENTED BY AT LEAST 2 DAYS THROUGHOUT SHIFT, HAS BEEN ABLE TO INTERMITTENTLY IDENITIFY THAT HE IS IN [facility]. HE HAS DENIED HEADACHES AND NAUSEA THROUGHOUT THIS SHIFT, DENIES HALLUCINATIONS AND NO OBVIOUS HALLUCINATIONS HAVE BEEN OBSERVED. MEDICATED WITH ATIVAN 2 MG IV X 2 FOR CIWA SCORES GREATER THAN 8 HOWEVER PT'S SCORES HAVE MAINTAINED LESS THAN 20 THIS SHIFT, PRECEDEX REMAINS ON STANDBY SINCE YESTERDAY AM. PT STRENGTH IMPROVING THIS SHIFT AND IS ABLE TO SIT UPRIGHT IN BED UNASSISTED. BED ALARM REMAINS ARMED FOR OCCASIONAL ATTEMPTS TO GET UP OOB. PT FOLLOWS VERBAL DIRECTIONS.
--- NOTE | 2018-08-18 13:53 | NUR ---
REASSESSMENT: PT SPENT MOST OF THE MORNING IN BED. THE LIFT WAS USED TO GET HIM UP TO THE COMMODE WHERE HE JUST AHD A SMEAR FOR A BM. HE HAS ATTEMPTED TO GET OUT OF BED A COUPLE TIMES, BED ALARM ON. HE HAS BEEN REDIRECTABLE. HE IS FIXATED ON HIS PHONE,Silvia PATEL BEING TOLD IT IS AT [facility]. HIS SO CAME IN AND SAT WITH HIM TODAY FOR ABOUT AN HOUR. CIWAA HAS BEEN AROUND 10, USING ATIVAN TO CONTROL WITHDRAWAL SYMPTOMS. PRECEEX REMAINS OFF. CONTINUING TO MONITOR.
--- NOTE | 2018-08-18 17:08 | NUR ---
SHIFT SUMMARY: PT CONTINUES TO SLOWLY IMPROVE. HE HAS NOT REQUIRED ANY ATIVAN SINCE AROUND NOON. HE IS STILL IMPULSIVE, TRYING TO GET OUT OF BED WITHOUT ANY ASSISTANCE. HE GOT UP WITH PHYSICAL THERAPY WITH 2 PERSON ASSIST, STILL VERY WEAK. HE IS STILL CONFUSED, REPEATEDLY ASKING QUESTIONS ABOUT WHY HE IS HERE OR WHERE HIS BELONGINGS ARE. HE REMAINS IN SR, BP STABLE, LUNGS CLEAR, RA. ESTEFANÍA REMOVED THIS MORNIGN. PT DENIES URGE TO VOID AT THIS TIME, ATTENDS ON.CONTINUING TO MONITOR.
--- NOTE | 2018-08-18 19:15 | NUR ---
ASSUMED CARE OF PT PT WITHDRAWN AND ORIENTED TO SELF. WHEN ASKED IF HE KNEW THE DATE AND WHERE HE WAS PT RESPONDED "07/2018 AND [facility]". PT IS SLOW TO RESPOND TO QUESTTIONS AND SPEAKS VERY QUIETLY. PT EXHIBITS SLOW PHYSICAL MOVEMENTS AND ATTEMPTS TO GET OUT OF BED. BED ALARM IS ON. SEE FULL SHIFT ASSESSMENT.
--- NOTE | 2018-08-18 22:25 | NUR ---
PT IS MORE AWAKE AND ORIENTED. WHEN ASKED WHAT DATE/YEAR IT IS AND WHERE HE IS PT RESPONDED " MONTH, 2017, AND [facility]". PT IS QUICKER TO RESPOND TO QUESTIONS AND IS ABLE TO VERBALIZE NEEDS.
--- NOTE | 2018-08-19 06:11 | NUR ---
SHIFT SUMMARY PT CONTINUES TO BE CONFUSED AND EXHIBIT IMPULSIVE BEHAVIOR. CIWA SCORE HAS BEEN BETWEEN 10-15 THIS SHIFT. PT HAS APPEARED WITHDRAWN WITH FLAT EMOTIONS. PT OFTEN ATTEMPTS TO GET OUT OF BED/CHAIR INDEPENDENTLY FORGETTING HIS LIMITATIONS. TAB/BED ALARM ON AT ALL TIMES. PT IS VERY WEAK AND UNABLE TO STAND WITHOUT MAX ASSISTANCE USING GAIT BELT AND 2-PERSON ASSIST. WILL REPORT TO DAYSHIFT NURSE.
--- NOTE | 2018-08-19 08:03 | NUR ---
PT SPONTANIOUSLY AWAKENED THIS AM NEEDING TO GET UP AND VOID. PT STOOD WITH MAX ONE PERSON SBA. HE IS COOP. AND CALM. HIS MOVEMENTS, SPEECH AND THINKING IS SLOW. SOME SMALL INCONSISTANCES NOTED BUT OTHERIWISE LARGELY APPROP. WITH ANSWERS. ANNEWA NOTED. BED ALARM IS ON. PT IS TENDER IN BOTH WRISTS AND ANKLES AND INDICATES THAT HE HAS A HX OF TENDERNESS IN THESE AREAS. PT VERY WEAK AND ALMOST UNABLE TO FEED SELF. WILL CONT. TO MONITOR.
[2018-08-19] MEDS ORDERED: CLINGEL TOP (08:36)
[2018-08-19] MEDS ORDERED: Pyridium200 MG PO (08:37)
[2018-08-19] MEDS ORDERED: MUPI1NAS (08:37)
--- NOTE | 2018-08-19 09:54 | NUR ---
OT/PT JUST FINISHED RX AND EVAL. REPORTING THAT PT IS MAKING PROGRESS. PT RETURNED TO BED AND ALARM ON. SEE OT/RT NOTE.
--- NOTE | 2018-08-19 10:14 | NUR ---
S.O. IS IN ROOM VISITING PT. PT NAPPING CURRNELTY AFTER OT/PT WORKOUT.
--- NOTE | 2018-08-19 13:07 | NUR ---
PT HAS BEEN INCREASINGLY RESTLESS AND IMPULSIVE. MEDICATIONS GIVEN NOTED. PT IS NOT COMBATIVE BUT IS VERY IMPULSIVE, WITH SLOWNESS TO RESPOND AND MOVE ABOUT THAT IS AIDING IN PT SAFETY CURRENTLY.
--- NOTE | 2018-08-19 17:44 | NUR ---
Nav is soft-spoken and a bit slow to respond. He tells me he wants help to quit drinking and is willing to "do anything" to maintain sobriety. I provided gentle counselor aide and encouragement to good efect. I suspect Nav will become more mentally clear in coming days. He was unable to sustain conversation. I will continue to visit in coming days as schedule permits.
--- NOTE | 2018-08-19 17:47 | NUR ---
PT S.O. IN TO VISIT. PT VS NOTED. GOOD I/O TODAY. PT HAS ONLY HAD ONE DOSE OF ATIVAN AND SCHEDULED LIBRIUM AND REMAINS SOMEWHAT IMPULSIVE WHEN NOT SLEEPING BUT IS REDIRECTABLE AND CALM. CIWA HAS ONLY BEEN 3 THIS SHIFT.
--- NOTE | 2018-08-19 19:15 | NUR ---
ASSUMED CARE OF PT RECEIVED REPORT FROM DAYSHIFT NURSE. PT SLEEPING. VSS. BED ALARM ON AND SIDE RAILS UP/LOCKED.
--- NOTE | 2018-08-19 21:59 | NUR ---
PT ALERT WITH CONFUSION. CIWA SCORE 13. WHEN ASKED IF PT KNEW THE DATE AND WHERE HE WAS HE STATED "[facility]" AND THAT IS WAS THE " OF THE 18TH MONTH". PT APPEARS AGITATED AND IMPULSIVE BUT IS COOPERATIVE WITH COMMANDS. SEE FULL SHIFT ASSESSMENT.
--- NOTE | 2018-08-19 23:08 | NUR ---
PT ATTEMPTING TO CRAWL OVER SIDE RAIL. PT STATED TO THIS NURSE "YOUR WAS JUST IN HERE, HE WAS STANDING OVER THERE". PT REMINDED TO STAY IN BED AND ASK FOR ASSISTANCE. BED ALARM ON.
--- NOTE | 2018-08-20 00:06 | NUR ---
PT CONTINUES TO EXHIBIT IMPULSIVE BEHAVIOR AND HAS BECOME INCREASINGLY AGITATED. PT INSISTS THAT HE WANTS TO GO HOME AND THAT WE ARE "HOLDING HIM AGAINST HIS WILL". PT WAS REMINDED REPEATEDLY WHY HE NEEDED TO STAY IN BED (SEVERELY WEAK), AND WHY HE WAS IN THE ICU ([facility] W/DRAW). PT INSISTED THAT WE "CALL THE POLICE", CHARGE NURSE JOCELYNN CONTACTED SECURITY TO RESPOND TO PT'S ROOM. PT WAS MEDICATED WITH ATIVAN AND PLACED IN A SYMONE VEST TO ENSURE HIS SAFETY. PT IS RESTING QUIETLY. BED ALARM CONTINUES TO BE ACTIVE. CIWA SCORE OF 20.
[2018-08-20 04:03] LABS: Magnesium, Blood 2.1 mg/dL (1.6-2.4)
[2018-08-20 04:04] LABS: Anion Gap 9 mmol/L (6-16); Blood Urea Nitrogen 6 mg/dL (8-24); Bun/Creatinine Ratio 9.8 (12.0-20.0); CO2, Blood 27 mmol/L (21-32); Calcium, Blood 8.8 mg/dL (8.5-10.1); Chloride, Blood 103 mmol/L (98-108); Creatinine, Blood 0.61 mg/dL (0.60-1.20); Glomerular Filtration Rate >60 (60-); Glucose, Blood 95 mg/dL (70-99); Phosphorus, Blood 3.5 mg/dL (2.5-4.9); Potassium, Blood 3.9 mmol/L (3.5-5.5); Sodium, Blood 139 mmol/L (136-145)
--- NOTE | 2018-08-20 05:36 | NUR ---
PT CONFUSED AND AGITATED THROUGHOUT THE NIGHT. PT CONTINUES IMPULSIVE BEHAVIOR AND ATTEMPTS TO GET OUT OF BED. SYMONE VEST AND BED ALARM IN PLACE TO ENSURE PT'S SAFETY. PT REFUSED 0000 AND 0600 MEDICATIONS. CIWA SCORE HAS BEEN BETWEEN 10-20 THROUGHOUT THIS SHIFT. PT MEDICATED TWICE WITH ATIVAN NEEDED NEEDED FOR AGITATION. WILL REPORT TO DAYSHIFT NURSE.
--- NOTE | 2018-08-20 08:20 | NUR ---
INITIAL ASSESSMENT PATIENT SLEEPING SOUNDLY UPON ENTERING ROOM. PATIENT SPEAKS QUIETLY AND IS SLOW TO RESPOND. PATIENT IS DISORIENTED TO THE DAY, WHERE HE IS AND WHY HE IS HERE. PATIENT KNOWS SELF, FAMILY, AND THAT IS IN [place]. PATIENT FLAT, WITHDRAWN. PATIENT APPEARS ANGRY AND IS REFUSING ALL MEDICATIONS AND MOST CARE THIS AM. PATIENT DID LET NURSE HELP HIM TO USE URINAL AND TO GET HIM COMFORTABLE AND COVERED UP IN BED. PATIENT PARANOID. NURSE ASKED IF SIGNIFICANT OTHER WILL BE HERE TO VISIT TODAY AND PATIENT REPLIED, "IF YOU AREN'T GOING TO KILL HER". PATIENT ASSURED THAT HIS SIG OTHER WOULD NOT BE HARMED. CIWA OF 6 THIS AM. PATIENT HAS TEMP OF 99.6 DEGREES FAHRENHEIT BUT WOULD LIKE TO REMAIN BUNDLED IN BLANKETS. WHEN PATIENT ASKED IF HE IS IN PAIN HE REPLIES, "YES, EVERYWHERE". NURSE TRIED TO ASK PATIENT MORE QUESTIONS ABOUT PAIN AND GIVE SOMETHING TO HELP ALLEVIATE IT. PATIENT IS REFUSING ALL SUGGESTIONS. PATIENT IS SATTING WELL ON RA. LUNGS CLEAR T/O. PATIENT IS IN SR, HR 80S TO 90S. BP STABLE. PULSES STRONG. PATIENT HAS TRACE EDEMA TO EXTREMITIES. GI WNL. PATIENT REFUSING BREAKFAST THIS AM. PATIENT VOIDING DARK YELLOW URINE IN URINAL THIS AM. ATTENDS IN PLACE PATIENT IS SOMETIMES INCONTINENT. PATIENT HAS NS INFUSING AT 75 MLS/ HOUR. BED LOW, CALL LIGHT IN REACH, BED ALARM ON. WILL CONTINUE TO MONITOR PATIENT FREQUENTLY THROUGHOUT SHIFT.
--- NOTE | 2018-08-20 08:46 | NUR ---
DR. LEE IN TO SEE PATIENT THIS AM.
--- NOTE | 2018-08-20 10:35 | NUR ---
PT/ OT IN TO SEE PATIENT. CARE MANAGEMENT HERE TO SEE PATIENT.
--- NOTE | 2018-08-20 11:57 | NUR ---
PATIENT SITTING UP IN CHAIR. SIGNIFICANT OTHER IS FEEDING PATIENT LUNCH BROUGHT FROM HOME. PATIENT GIVEN PRN IBUPROFEN FOR COMPLAINT OF BILAT WRIST PAIN. CIWA OF 5. PATIENT REMAINS CONFUSED, WEAK. VSS. WILL CONTINUE TO MONITOR.
--- NOTE | 2018-08-20 16:42 | NUR ---
PATIENT SLEEPING SOUNDLY IN BED WHEN ENTERED ROOM. PATIENT REMAINS CONFUSED, HOWEVER AFTER REORIENTED THAT CAME FROM [facility] FOR ALCOHOL WITHDRAWAL PATIENT ASKED "IS MY SHIT STILL THERE?". PATIENT INFORMED THAT PATIENT RECEIVED REPORT THAT HIS BELONGINGS WERE STILL AT THE FACILITY. PATIENT MORE COOPERATIVE THAN HE WAS IN THE AM. CIWA OF 5. PATIENT GIVEN PRN TYLENOL FOR COMPLAINT OF PAIN IN BILAT WRISTS AND ANKLE. PATIENT REMAINS SATTING WELL ON RA. PATIENT REMAINS IN NSR, HR IN THE 80S. BP STABLE. NO OTHER ACUTE CHANGES TO NOTE ON AT THIS TIME. WILL CONTINUE TO MONITOR.
--- NOTE | 2018-08-20 18:17 | NUR ---
SHIFT SUMMARY PATIENT REMAINED CONFUSED THROUGHOUT SHIFT, HOWEVER LESS SO NOW THAN AT BEGINNING OF SHIFT. PATIENT ALSO VERY RESISTANT TO ANY MEDICATIONS OR NURSING CARE THIS AM. PATIENT HAS BECOME MUCH MORE COOPERATIVE THROUGHOUT SHIFT CONTINUES TO BE REORIENTED AND REMINDED THAT HE IS HERE WITH ALCOHOL WITHDRAWALS AND THAT STAFF IS ONLY HERE TO HELP. SYMONE VEST REMOVED AT 0800 PATIENT NOT TRYING TO CONSTANTLY CRAWL OUT OF BED. PATIENT DOES NEED BED ALARM ON AND DOES TRY TO OCCASIONALLY CRAWL OUT OF BED BUT IS SLOW MOVING. PATIENT REMAINS SLOW TO RESPOND AND WEAK. PATIENT WORKED WITH PT/OT TODAY AND WAS OOB TO CHAIR FOR A FEW HOURS DURING DAY. PATIENT 2 PERSON ASSIST WITH GAIT BELT. CIWAS RANGED FROM 5-6 T/O DAY. PATIENT HAD TMAX OF 99.6 DEGREES FAHRENHEIT. PATIENT COMPLAINED OF PAIN IN WRISTS AND ANKLE- PRN IBUPROFEN AND TYLENOL GIVEN. PATIENT REMAINED SATTING WELL ON RA. LUNGS CLEAR T/O. PATIENT REMAINED IN SR, HR 70S TO 90S. BP STABLE. GI WNL. PATIENT DID NOT HAVE BM THIS SHIFT. PATIENT REFUSED BREAKFAST, ATE LUNCH THAT SIG. OTHER BROUGHT IN AND ATE A FEW BITES OF DINNER AND THEN WANTED TO SAVE THE REST FOR LATER. PATIENT VOIDING DARK YELLOW URINE INTO BEDSIDE URINAL WITH NURSE ASSISTANCE. PATIENT WAS NOT INCONTINENT OF URINE THIS SHIFT. ADEQUATE UO. NO CHANGE TO SKIN. NS REMAINS INFUSING AT 75 MLS/ HOUR. PATIENT HAD BED BATH THIS SHIFT. PATIENT'S SIGNIFICANT OTHER WAS IN AND OUT DURING DAY. PATIENT SLEEPING AT THIS TIME WITH NO SIGNS OF PAIN OR DISCOMFORT. BED LOW, CALL LIGHT IN REACH. WILL CONTINUE TO MONITOR PATIENT FREQUENTLY UNTIL REPORT GIVEN TO ONCOMING METAL ALLOY SCIENTIST NURSE SHORTLY.
--- NOTE | 2018-08-20 19:15 | NUR ---
ASSUMED PT CARE PT CURRENTLY SLEEPING; DIDN'T WANT TO BOTHER/WAKE PT. NS RUNNING AT 75MLS/HR. PT APPEARS COMFORTABLE.
--- NOTE | 2018-08-20 21:45 | NUR ---
PT AWAKE AND CONFUSED TO PLACE. BELIEVES HE IS DOWN "[address] PT ATTEMPTING TO GET OUT OF BED; BED ALARM ON. PT REDIRECTED AND ENCOURAGED TO STAY IN BED. WHEN PT WAS GIVEN MEDS HE BELIEVED WE WERE "POISENING HIM". PT ASSURED THAT NO ONE WAS TRYING TO "POISON HIM" RATHER "HELP HIM". PT KEPT ASKING ABOUT THE MAN HE NEEDED TO TALK TO AT "THE PLACE"; REFERRING TO [facility]. PT ASKED ABOUT HIS GOALS AND WHAT HE NEEDED TO DO TO "GET OUT OF THIS PLACE". REINFORCED TO PT THAT ONCE HIS PARANOID THOUGHTS DECREASE AND HIS STRENGTH IMPROVES THEN THE GOAL WOULD BE TO GO [facility] IF A BED WAS AV[facility] FOR [facility]. PT REITERATED THAT HE NEEDED TO STOP BEING PARANOID AND MOVE HIS ARMS AND LEGS MORE IN BED IN ORDER TO GET OUT OF HERE. REINFORCED TO PT THAT WAS CORRECT, BUT ALSO EDUCATED ON THE FACT THAT SOMETIMES HE WON'T BE ABLE TO HELP HIS PARANOID THOUGHTS.
--- NOTE | 2018-08-21 06:37 | NUR ---
END OF SHIFT SUMMARY PT HAS MAINLY SLEPT T/O NIGHT. UPON AWAKENING PT HAS CONTINUED TO BE CONFUSED TO PLACE; STILL BELIEVES HE IS ON "[address] KNOWS HE IS IN [place]; CONFUSED OF TIME. CONTINUES TO ASK ABOUT [facility] AND WHEN HE IS GOING BACK; PT HAS BEEN GENTLY REORIENTED TO GOAL/PLAN. PT IS RESTING IN BED COMFORTABLE; IN AND OUT OF FALLING ASLEEP. PT HAS BEEN CONTINENT T/O NIGHT USING URINAL. PT APPEARS COMFORTABLE AT THIS TIME.
--- NOTE | 2018-08-21 09:00 | NUR ---
0700: CARE ASSUMED, PT SLEEPING, VSS, NO AGITATION/RESTLESSNESS NOTED. NS INFUSING 75ML/HR. 0800: ASSESSMENT COMPLETED, HRR, LS CTA, VS REMAIN STABLE. PT AWAKE AND ALERT, ORIENTED TO SELF AND SITUATION, FOLLOWING COMMANDS, APPROPRIATE AND COOPERATIVE. CIWA 5. BILATERAL WRIST EDEMA PRESENT SECONDARY TO GOUT, PT REPORTS MILD PAIN, REQUESTING NAPROXIN, DR LEE AT BEDSIDE AND AWARE OF PT'S REQUEST. PT REMAINS AT BEDSIDE TO EAT BREAKFAST. 0900: PO MEDICATIONS ADMINISTERED, TOLERATED WELL, PT'S AFFECT VERY FLAT. PT VOIDED IN URINAL, AM CARES COMPLETED, ASSISTED BACK INTO BED, DENIES OTHER NEEDS AT THIS TIME. PT REMAINS WEAK BUT IS ABLE TO POSITION SELF IN BED.
--- NOTE | 2018-08-21 11:19 | NUR ---
1115: LEXAPRO AND LIBRIUM ADMINISTERED PER ORDERS, PT C/O MILD TREMORS, REMAINS CALM, COOPERATIVE, AND ORIENTED TO SELF/SITUATION. VSS, NAPROXEN ADMINISTERED FOR 4/10 JOINT PAIN. PT RESTING IN BED, DENIES OTHER NEEDS.
--- NOTE | 2018-08-21 14:30 | NUR ---
1200: PT RESTING IN BED WITH EYES CLOSED, VSS, AFFECT REMAINS FLAT. PT DENIES NEEDS OR C/O. 1400: IV SALINE LOCKED, STATUS CHANGED TO MEDICAL. PT'S SO AT BEDSIDE, PT INTERACTING SOME WITH SO, AFFECT REMAINS FLAT AND MONOTONED PT DENIES NEEDS, VSS. OT ARRIVES FOR THERAPY, PT UP TO CHAIR WITH THERAPIST. 1430: PT UP WALKING IN [place] WITH PT WITH GAIT BELT AND WALKER, EFFORT IS GOOD.
--- NOTE | 2018-08-21 17:39 | NUR ---
1600: PT TOLERATED PT/OT WELL, USED WALKER AND GAIT BELT TO AMBULATE IN UNIT, BECOMES FATIGUED FAIRLY EASILY. PT ASSISTED BACK TO BED WHERE HE REMAINS NOW, IS SITTING UP WATCHING TV WITH NO C/O, DENIES NEEDS. CIWA 5, PT DENIES PAIN OR C/O. 1730: PT ASSISTED TO CHAIR PER HIS REQUEST TO READ A MAGAZINE, IS NOW EATING DINNER WITHOUT DIFFICULTY. MEDICATIONS ADMINISTERED, PT DENIES NEEDS.
--- NOTE | 2018-08-21 18:05 | NUR ---
1800: REPORT CALLED TO MIAN, NURSE ON MEDICAL FLOOR, PT TO ROOM 345.
--- NOTE | 2018-08-21 18:28 | NUR ---
TRANSFER PT TO ROOM 345 FROM ICU. PT ALERT AND ORIENTED TO PLACE AND CALL LIGHT. C/O OF PAIN IN WRIST. WILL MEDICATED PER EMAR. ENCOURAGED PT TO USE CALL LIGHT FOR ASSISTANCE. BED ALARM ON FOR SAFETY. CALL LIGHT IN REACH.
--- NOTE | 2018-08-22 04:58 | NUR ---
*SHIFT SUMMARY* PATIENT ALERT TO SELF AND PLACE. CONFUSED AT TIMES. PATIENT DID NOT USE CALL LIGHT APPROPRIATELY AT THE BEGINING OF SHIFT. PATIENT TRIED GETTING OUT OF BED WITHOUT CALLING AND FELL. SEE IRIS. PATIENT SLEPT OFF AND ON THROUGHOUT NIGHT. PATIENT STANDS AT THE SIDE OF BED WITH ASSISTANCE TO USE URINAL. PATIENT IS NOT STEADY ON HIS FEET. PATIENT WAS MEDICATED FOR PAIN IN HIS WRISTS. PATIENT IS ON ROOM AIR. CIWA SCORE LESS THAN 8. NO INTERVENTIONS NEEDED. BED LOWERED AND LOCKED WITH CALL LIGHT IN REACH. BED ALARM ON. ORDERED SYMONE VEST AFTER PATIENT FELL FOR SAFETY.
--- NOTE | 2018-08-22 17:39 | NUR ---
SHIFT SUMMARY UNSTEADY GAIT. APPEARS CONFUSED AT TIMES BUT ORIENTED TO SELF, FAMILY AND FOLLOWS SIMPLE COMMANDS. ATE VERY LITTLE TODAY BUT DRINKING FLUIDS WELL. GIRLFRIEND STATES "HE SAYS HE WANTS TO GO HOME BUT I AM GONE 5 DAYS A WEEK AND I CAN'T TAKE CARE OF HIM LIKE THIS". CIWA <7 THROUGHOUT SHIFT. CONTINENT OF BOWEL AND BLADDER TODAY.
--- NOTE | 2018-08-23 04:31 | NUR ---
DIRECTOR OF ALUMNI RELATIONS SUMMARY NO ACUTE CHANGES THIS SHIFT. PT AAOX2 AND PLEASANT. CIWA 3 AT HIGHEST THIS SHIFT, SOME SLIGHT TREMORS NOTED AND SOME DISORIENTATION. PT UNSURE OF DATE AND UNABLE TO ADD NUMBERS CORRECTLY. NO RESTRAINTS NEEDED THIS SHIFT. PT HAS USED HIS CALL LIGHT A FEW TIMES TONIGHT, BED ALARM REMAINS ON FOR SAFETY. PT STILL VERY WEAK. VSS, WILL CONTINUE TO MONITOR.
--- NOTE | 2018-08-23 15:55 | NUR ---
APPEARS MORE ALERT TODAY, AWARE OF HIS UNSTEADINESS STATES "I KNOW I'VE BEEN DRINKING FOR A LONG TIME BUT WHY AM I MESSED UP LIKE THIS?". FAMILY AT BEDSIDE. PT EATING AND DRINKING WELL TODAY. UNSTEADY GAIT TO BATHROOM; CONTINENT THIS SHIFT. BED ALARM ON.
--- NOTE | 2018-08-23 18:20 | NUR ---
SHIFT SUMMARY PT APPEARS MORE AWARE OF HIS SITUATION TODAY; 1 ASSIST TO BSC AND TO USE URINAL. COOPERATIVE. CIWA'S DISCONTINUED. DENIES ANY PAIN OR DISCOMFORT. SHOWER TODAY. FAMILY TO VISIT THIS P.M. EATING AND DRINKING MORE TODAY.
--- NOTE | 2018-08-24 04:26 | NUR ---
CASE ASSEMBLER SUMMARY NO ACUTE CHANGES THIS SHIFT. CIWA DC'D DURING DAY SHIFT. PT SHOWING NO SYMPTOMS OF ACTIVE WITHDRAWAL. PT MENTATION AND STRENGTH SEEM IMPROVED TONIGHT. PT ABLE TO STAND EASIER AND CAN GET TO BATHROOM WITH A STANDBY ASSIST. PT IS STILL UNSTEADY AND A FALL RISK WITHOUT ASSISTANCE. PT ANXIOUS ABOUT ILLNESS, STATING "I DONT KNOW IF I'LL EVER BEEN THE SAME AGAIN". GAVE TYLENOL X1 FOR CHRONIC ARTHRITIC PAIN. PT DENIES HEADACHE, SOB, N/V. VSS, WILL CONTINUE TO MONITOR.
--- NOTE | 2018-08-24 16:54 | NUR ---
NO ACUTE CHANGES THIS SHIFT, OT REPORTS PATIENTS STRENGTH CONTINUES TO IMPROVE. VSS. TOLERATING REGULAR DIET. UP WITH FWW AND 1 ASSIST. CALM AND COOPERATIVE WITH CARE. ORIENTED X4, BUT SLOW TO RESPOND AND FORGETFUL AT TIMES.
--- NOTE | 2018-08-25 04:25 | NUR ---
COMPUTED TOMOGRAPHY SCANNER OPERATOR SUMMARY NO ACUTE CHANGES THIS SHIFT. PT AAOX3, PLEASANT AND COOPERATIVE WITH CARE. PT STILL UNSTEADY ON FEET BUT STRENGTH AND OVERALL MENTATION SEEM MUCH IMPROVED. DENIES PAIN, N/V, AND SOB. STANDBY ASSIST TO THE BATHROOM. PT EAGER TO BEGIN REHAB AT A FACILITY TO REGAIN HIS STRENGTH. VSS, WILL CONTINUE TO MONITOR.
[2018-08-25] MEDS ORDERED: ESCI5 PO (11:54)
--- NOTE | 2018-08-25 13:56 | NUR ---
PATIENT D/C'D TO HOME. [facility]C INSTRUCTIONS AND EDUCATION DISCUSSED WITH PATIENT AND COPY PROVIDED. PATIENT DENIES ANY FURTHER NEEDS AT THIS TIME.
== END 2018-08-25 13:56 | disposition home or self-care (01) | DRG 897 ==
LOC: ER 21:25 → PCU 21:26 → ER 08-12 00:35 → PCU 08-12 00:35 → ICUW 08-12 01:19 → MEDS 08-12 14:17 → ICUW 08-12 14:18 → ICUE 08-20 17:04 → MEDS 08-21 17:52
PROVIDERS: Emergency Medicine; Internal Medicine; ADMIT Internal Medicine
DX: F10.231 Alcohol dependence with withdrawal delirium (principal); F32.9 Major depressive disorder, single episode, unspecified; K21.9 Gastro-esophageal reflux disease without esophagitis; E87.6 Hypokalemia; E83.39 Other disorders of phosphorus metabolism; I10 Essential (primary) hypertension; D64.9 Anemia, unspecified
CPT/HCPCS: 36415; 51702; 71045; 73120; 80048; 80053; 80178; 81001; 81003; 83735; 84100; 85025; 85027; 87040; 87081; 87493; 90686; 93005; 93010; 96365; 96366; 96372; 96374; 96375; 96376; 97110; 97116; 97162; 97164; 97166; 97530; 97535; 99285-25; C1751; C9113; G0008; G0378; G0480; G8978; G8979; G8987; G8988; J1650; J2060; J3411; J3475; J7030; J7042; J7060

== ENCOUNTER 2021-07-05 08:31 | Emergency (ER) | payer OTHER ==
[~2021-07-05] VITALS: Ht 180.3 cm; Wt 117.9 kg
[~2021-07-05 08:31] MED LIST changes: +CLINGEL TOP; +CLON.1 PO; +ESCI5 PO; +FOLI400 PO; +GABA300 PO; +HYDHCL25 PO; +Hair, Skin & N1 EACH PO; +LORA1 PO; +MELA3 PO; +METO25ER PO; +MUPI1NAS; +PROM25 PO; +Prilosec Otc20 MG PO; +Pyridium200 MG PO; +THIA100 PO; +TRAZ50 PO; +[UNRECOGNIZED DRUG - OTHER] PO
[2021-07-05] MEDS ORDERED: Cymbalta20 MG PO (08:56)
[2021-07-05] MEDS ORDERED: CEPH500 PO (11:38)
== END 2021-07-05 11:48 | disposition home or self-care (01) ==
LOC: ER 08:31
DX: S61.512A Laceration without foreign body of left wrist, initial encounter (principal); I10 Essential (primary) hypertension; K21.9 Gastro-esophageal reflux disease without esophagitis; D64.9 Anemia, unspecified; Z23 Encounter for immunization; Z91.013 Allergy to seafood; Z79.899 Other long term (current) drug therapy; W26.0XXA Contact with knife, initial encounter
CPT/HCPCS: 12001; 90471; 90714; 93931; 93971; 99283-25

== ENCOUNTER 2021-07-14 09:25 | Emergency (ER) | payer OTHER ==
[~2021-07-14] VITALS: Ht 185.4 cm; Wt 117.9 kg
[~2021-07-14 09:25] MED LIST changes: +Cymbalta20 MG PO
== END 2021-07-14 10:15 | disposition home or self-care (01) ==
LOC: ER 09:25
DX: S61.512D Laceration without foreign body of left wrist, subsequent encounter (principal); I10 Essential (primary) hypertension; G62.9 Polyneuropathy, unspecified; Z91.013 Allergy to seafood

== ENCOUNTER → 2021-10-23 | Outpatient (CLI) | payer OTHER ==
[2021-10-23 13:41] LABS: BASOPHILS ABSOLUTE AUTO 0.05 K/mm3 (0.00-0.23); BASOPHILS PERCENT AUTO 1 % (0-2); EOSINOPHILS PERCENT AUTO 4 % (0-6); Hemoglobin 14.7 g/dL (13.5-17.5); IMMATURE GRAN ABSOLUTE AUTO 0.02 K/mm3 (0.00-0.10); IMMATURE GRAN PERCENT AUTO 0 % (0-1); LYMPHOCYTES ABSOLUTE AUTO 2.03 K/mm3 (0.84-5.20); LYMPHOCYTES PERCENT AUTO 30 % (21-46); MONOCYTES ABSOLUTE AUTO 0.73 K/mm3 (0.16-1.47); MONOCYTES PERCENT AUTO 11 % (4-13); Mean Corpuscular HGB 30.6 pg (26.0-34.0); Mean Corpuscular Volume 87 fL (80-100); Mean Platelet Volume 9.7 fL (9.1-12.4); NEUTROPHILS ABSOLUTE AUTO 3.73 K/mm3 (1.96-9.15); NEUTROPHILS PERCENT AUTO 54 % (41-73); Platelet Count 306 K/mm3 (150-400); RDW Coefficient Variation 11.9 % (11.7-14.2); Red Blood Cell Count 4.81 M/mm3 (4.30-5.90); White Blood Cell Count 6.86 K/mm3 (4.00-11.30)
[2021-10-23 14:01] LABS: Alanine Aminotransfer (ALT/SGP 37 U/L (12-78); Albumin, Blood 4.4 g/dL (3.4-5.0); Albumin/Globulin Ratio 1.7 (0.8-1.8); Alk Phos 62 U/L (50-136); Anion Gap 7 mmol/L (6-16); Aspartate Aminotrans (AST/SGOT 21 U/L (12-37); Bilirubin, Total 0.5 mg/dL (0.1-1.0); Blood Urea Nitrogen 12 mg/dL (8-24); Bun/Creatinine Ratio 13.2 (12.0-20.0); CO2, Blood 26 mmol/L (21-32); Calcium, Blood 9.5 mg/dL (8.5-10.1); Chloride, Blood 106 mmol/L (98-108); Creatinine, Blood 0.91 mg/dL (0.60-1.20); Globulin, Blood 2.6 g/dL (2.2-4.0); Glomerular Filtration Rate >60 (60-); Glucose, Blood 100 mg/dL (70-99); Potassium, Blood 4.3 mmol/L (3.5-5.5); Sodium, Blood 139 mmol/L (136-145)
== END | disposition home or self-care (01) ==
LOC: LAB SHORT 10:15
PROVIDERS: Family Medicine
DX: Z51.81 Encounter for therapeutic drug level monitoring (principal); Z79.899 Other long term (current) drug therapy
CPT/HCPCS: 80053; 85025

== ENCOUNTER 2024-03-04 08:01 | Day surgery (SDC) | payer OTHER ==
[~2024-03-04] VITALS: Ht 180.3 cm; Wt 132.1 kg
[~2024-03-04 08:01] MED LIST changes: +Lactated Ringer's 1,000 ML IV SCH; +TRAZ100 PO
[2024-03-04 08:53] VITALS: BP 149/87
--- NOTE | 2024-03-04 09:16 | NUR ---
03/04/[address] POTTER, SEE ANESTHESIA RECORDS.
[2024-03-04] MEDS ORDERED: propofoL 50 ML IV ONE (09:18)
[2024-03-04] MEDS ORDERED: propofoL 0 ML IV ONE (09:34)
[2024-03-04] MEDS ORDERED: propofoL 20 ML IV ONE (09:44)
[2024-03-04 09:55] VITALS: BP 132/80
--- NOTE | 2024-03-04 09:55 | NUR ---
PT TO DAY SURGERY STEP DOWN FROM COLONOSCOPY; BEDSIDE REPORT RECEIVED. PT IS AWAKE, ALERT AND ORIENTED; ABLE TO MOVE SELF IN BED. VSS. NO COMPLAINTS
--- NOTE | 2024-03-04 10:08 | NUR ---
PT TOLERATING PO FLUIDS WELL. Discharge instructions reviewed with patient. Patient verbalizes understanding. Copy given to patient to take home. Patient States Post-Procedure ride home has been arranged.
[2024-03-04 10:14] VITALS: BP 134/70
--- NOTE | 2024-03-04 10:19 | NUR ---
Patient up to Ambulate independently. Gait steady.
--- NOTE | 2024-03-04 10:19 | NUR ---
Discharged via wheelchair to private car for ride home.
== END 2024-03-04 10:21 | disposition home or self-care (01) ==
LOC: ORSCMMR 08:01 → ORD 09:30 → ORSCMMR 09:30
PROVIDERS: Internal Medicine Gastroenterology
PROC: 0DBL8ZX Excision of Transverse Colon, Via Natural or Artificial Opening Endoscopic, Diagnostic (ICD-10-PCS; principal; 2024-03-04 09:30)
PROC: 0DBN8ZX Excision of Sigmoid Colon, Via Natural or Artificial Opening Endoscopic, Diagnostic (ICD-10-PCS; principal; 2024-03-04 09:30)
DX: Z12.11 Encounter for screening for malignant neoplasm of colon (principal); D12.5 Benign neoplasm of sigmoid colon; D12.3 Benign neoplasm of transverse colon; K63.5 Polyp of colon; I10 Essential (primary) hypertension; E66.01 Morbid (severe) obesity due to excess calories; Z68.41 Body mass index [BMI] 40.0-44.9, adult; Z79.899 Other long term (current) drug therapy; Z85.51 Personal history of malignant neoplasm of bladder
CPT/HCPCS: 88305; J2704; J7120